=== PATIENT | male | born 1970 | race Caucasian/White ===

== ENCOUNTER → 2017-01-22 | Day surgery (SDC) | payer OTHER ==
[2017-01-22] VITALS (10 sets, daily range): BP systolic 101–117; BP diastolic 54–75; PULSE 70–95; RESP 7–18; O2SAT 96–98
[~2017-01-22] VITALS: Ht 172.7 cm; Wt 77.2 kg
[~2017-01-22] MED LIST: Atropine 0.4 mg/mL Inj IVPUSH PRN; CLIN40GE TP; CeFAZolin 2 Gm/50 mL D5W IV Premix IV ONE; CeFAZolin Inj 2 gm / 50mL D5W IV ONE; Dexamethasone 4 mg/mL Inj IVPUSH PRN; Dexamethasone 4 mg/mL Inj ONE; EPHEDrine Sulfate 50 mg/mL Inj IVPUSH PRN; ESZO2TAB30 PO; HYDR-3091 PO; HYDR20TA19 PO; HYDROmorphone 1 mg/mL Inj IVPUSH PRN; IVER30CR TP; Labetalol 5 mg/mL 20 mL Inj IV PRN; Lactated Ringer's 1,000 ML IV SCH; Lactated Ringer's 500 ML IV PRN; Lidocaine 2%-Epi 1:100,000 20 mL Inj INFILTRATE ONE; METR45CR TOP; MetoCLOpramide 5 mg/mL 2 mL Inj IVPUSH PRN; NORT25CA PO; Ondansetron 2 mg/mL 2 mL Inj IVPUSH PRN; Phenylephrine 10,000 mCg/mL Inj IVPUSH PRN; Propofol 10,000 mCg/mL 20 mL Inj ONE; Ropivacaine-PF 0.5% 30 mL Inj INFILTRATE ONE; SILD100T PO; TEST75GE3 TD; TRET40CR4 TP; Vancomycin Inj 1,000 MG in IV Premix 1 EACH IV ONE; fentaNYL-PF 50 mCg/mL 2 mL Inj IVPUSH PRN; fentaNYL-PF 50 mCg/mL 20 mL Inj ONE; oxyCODONE-Acetamin 5-325 mg Tablet PO PRN
[2017-01-22] MEDS: Lactated Ringer's 1,000 ML IV SCH ×2 (06:11→07:26)
--- NOTE | 2017-01-22 07:23 | PCM.HPANE ---
Patient Data Date of Service: Jan 22, 2017 Surgeon Admitting Provider: Attending Provider:Prieto Lehman DO Primary Care Physician:Trey Tillman MD Other Provider:Alondra Mallory Anesthesia Reason for Visit Left Knee Internal Derangement Ht/WT & BMI Height (Feet): 5 Height (Inches): 8.00 Weight (Kilograms): 77.200 Body Mass Index 25.00 Allergies Coded Allergies: diphenhydramine (Verified Allergy, Intermediate, 01/22/17) Past Anesthesia History Anesthesia History: Denies:: Abnormal Airway, Anesthesia Reactions, Difficult Intubation, Fam Anesthesia Reaction, Fam Malignant Hypertherm, Malignant Hyperthermia Additional Information: Pt notes Hx of prolonged amnesia. Diabetes History Hx Diabetes?: No MRSA MRSA: No Medications Hypertension Medication: No Home Meds Incl Beta Keily: No Reported Medications Hydrocodone-Acetaminophen 7.5-300 mg 1 Each Tablet1 Each PO Q6H PRN For Pain Ref 0 01/14/17 Sildenafil Citrate (Viagra)100 Mg [id number] Mg PO UD PRN erectile dysfunction Ref 0 01/14/17 Tretinoin/Emollient Base (Tretinoin 0.05% Emollient Crm)60 Gm Cream..g.60 Gm TP PRN skin irritation 01/14/17 Nortriptyline 25 Mg [id number] Mg PO HS 01/14/17 Clindamycin Phosphate (Clindagel)40 Ml Gel..ml.1 Applic TP BID #40 ML Ref 0 01/14/17 Testosterone (Androgel)75 Gm Gel..pmp2 Applic TD QAM 2 pumps 1.62% soln 01/14/17 Discontinued Reported Medications Ivermectin (Soolantra)1 % Cream..g.30 Gm TP 01/14/17 Metronidazole (Metronidazole Cream)45 Gm Cream..g.1 Applic TOP BID #45 GM Ref 0 01/14/17 Hydrocodone Bitartrate (Hysingla ER)20 Mg Tab.er.24h20 Mg PO DAILY 01/14/17 Eszopiclone 2 Mg Tablet2 Mg PO HS 01/14/17 History History of ENT Problems?: No HEENT History: Denies:: Abnormal Airway Cataracts Difficult Intubation Dysphagia Glaucoma Hearing Problem Sinus Problem TMJ (grinds teeth a little, no nightguard) Denture Type: None Teeth Condition: Within Normal Limits Hx of Heart Problems?: No Cardiovascular History: Denies:: AICD Abdominal Aortic Aneurism Atrial Fibrillation Congestive Heart Failure Coronary Artery Disease Edema Heart Murmur Hypertension Irregular Heartbeat Pacemaker Peripheral Vascular Rheumatic Fever Hx of Respiratory Problem?: Yes Respiratory History: Positive for:: Use of C-PAP Machine Denies:: Asthma COPD Emphysema Pneumonia Tuberculosis Use of Inhalers / NEBS (past use of, not current ) Hx Neurologic Problems?: No Neurological History: Denies:: CVA Headaches Multiple Sclerosis Parkinson's Disease Seizures TIA Hx of GI Problems?: Yes Gastrointestinal History: Positive for:: Gastroesphageal Reflux Denies:: Cirrhosis Diverticulitis Gall Bladder Disease Gastrointestinal Bleeding Heartburn Hepatitis Hiatal Hernia Liver Disease Rectal Bleeding Hx of Problems?: No Genitourinary History: Denies:: Kidney Stones Urinary Tract Infection Male Hx: Denies:: Prostate Problems Skin History: Denies:: History Skin Disorders? Pressure Ulcers Hx Musculoskeletal Problems?: Yes Musculoskeletal History: Positive for:: Joint Replacement (total knee + distal femur left) Musculoskeletal Trauma (left distal femur replacement - giant cell tumor, left knee current problem) Osteoarthritis Denies:: Fibromyalgia Systemic Lupus Hx of Psycho/Social Problems?: No Psycho Social History: Denies:: Anxiety Hx Depression Hx Surgeries?: Yes (left femoral replacement, left total knee) Hx Any Other Health Problems?: Yes Other History: Positive for:: Cancer (giant cell tumor left femur) Denies:: Thyroid Disease History Blood Transfusions: Positive for:: Accept Blood Products? Denies:: Blood Transfusions Hx Diabetes: No Hx Alcohol Use: NoHx Substance Use: No Smoking Status: Never Smoker Have You Smoked inLast 12 mo: No Stop/Bang P-Blood Pressure: treated: No B- Body Mass Index > 35 kg/m2: No A- Age over 50: No N- Neck Large Circumference: No G- Gender Male: Yes [id number] Risk Assessment: High Risk, =/>3 Yes Risk Assessment Category Category 1A: Patient has history of documented sleep apnea, and HAS NOT received any narcotic, sedative or anesthesia administration during this stay. Category 1B: Patient has history of documented sleep apnea, and HAS received any narcotic , sedative or anesthesia administration during this stay Category 2: Patient has SUSPECTED Obstructive Sleep Apnea, and HAS received any narcotic , sedative or anesthesia administration during this stay. Category 3: Patient has SUSPECTED Obstructive Sleep Apnea and HAS NOT received narcotic, sedative or anesthesia administration during this stay. Category 4: Outpatient in Procedural Areas with known sleep apnea or who screen positive for High Risk via the STOP/BANG questionnaire. Exam Exam Vital Signs Vital Signs Date Time Temp Pulse Resp B/P Pulse Ox O2 Delivery O2 Flow Rate FiO2 01/22/17 06:40 CPAP/BIPAP 01/22/17 06:40 36.7 70 18 117/75 97 Room Air General Appearance: Alert, Oriented X3, Cooperative, No Acute Distress HEENT/AIRWAY: MP 2 (Narrow palate, small mouth) Lungs: Clear to Auscultation, Normal Air Movement Heart: Exam Unremarkable, Regular Rate/Rhythm, No Murmurs/Rubs/Gallops Meds/Labs/Diagnostics Admission Meds Current Medications Lactated Ringer's (Lr) 1,000 ml @ 120 mls/hr Q8H20M IV Last administered on t 06:11; Start 01/22/17 at 05:00; Stop 01/22/17 at 13:19 Plan Impression Patient chart reviewed, patient interviewed and anesthestic plan with risks, benefits, and alternatives discussed, and informed consent obtained. NPO per Anesth. Guidelines: Yes ASA Physical Status: ASA2 Mod Systemic Disease Anesthetic Plan: GA Bene/Risks/Altern/Consents: Yes HP Complete Prior to Induction: Yes Other Patient recounts prolonged amnesia following GA. Offered SAB, Pt defers to routine approach to current case, which I've described as GA. I'll choose against my typical BZD preop and opt for a TIVA in effort to minimize amnestic effects, or at least provide a contrast to likely prior anesthetic modalities. Hong Vergara DO Jan 22, 2017 07:23
--- NOTE | 2017-01-22 09:33 | OP ---
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 PROCEDURE: Left knee video arthroscopy with synovectomy. SURGEON: Prieto Lehman D.O. ANESTHESIA: General. INDICATIONS: The patient is a 46-year-old male who had a giant cell tumor resected out of his distal femur and had a tumor prosthesis placed in his knee, had persistent pain in the patellofemoral region and wished to proceed with a knee arthroscopy. We discussed the risks, benefits, and possible complications of surgery including, but not limited to injury to nerves and vessels, infection, bleeding, incomplete relief symptoms, stiffness, need for additional procedures. The patient had good understanding. All questions were answered and he wished to proceed. PROCEDURE IN DETAIL: The patient was brought to the operating room. He was given a preoperative antibiotic and general anesthetic. The left lower extremity was sterilely prepped and draped. An incision was made over the anterolateral knee at the level of joint line and blunt trocar was introduced into the knee. Inspection was undertaken. He was found to have quite a bit of dense scar tissue and synovitis in the patellofemoral region and in the notch area. A medial portal was established under needle localization and the synovitis and scar tissue were resected from the notch and around the patellofemoral region as well as superiorly at the patella. He was noted to have quite a bit of patella chondromalacia as he has an resurfaced patella articulating with the metal and this is likely a contributor to his pain. His chondromalacia was C2 and C3 on the patella. The scope was then removed and the portals were closed with interrupted nylon suture. An examination under anesthesia was performed. The knee was stable to varus and valgus stress test. Did not have excessive instability in flexion or extension and had excellent range of motion. The wounds were closed with interrupted nylon suture. Naropin was added as an adjunct local anesthetic. Sterile dressings were applied. The patient tolerated the procedure well. Blood loss was minimal. POSTOPERATIVE PROTOCOL: Have the patient weightbear to tolerance. Use crutches as needed. Ice and elevate and followup in the clinic in two weeks or sooner if needed. They discussed with his that if he continues to have problems he might consider a patellar resurfacing arthroplasty to complement his tumor prosthesis total knee replacement.
--- NOTE | 2017-01-22 10:30 | PCM.ANEP1 ---
Post Anesthesia PACU Phase 1 Assessment Date of Service: Jan 22, 2017 Vital Signs Vital Signs Date Time Temp Pulse Resp B/P Pulse Ox O2 Delivery O2 Flow Rate FiO2 01/22/17 09:43 75 18 111/74 01/22/17 09:00 74 18 117/65 97 Room Air 01/22/17 08:55 87 12 114/68 96 Room Air 01/22/17 08:50 36.8 91 14 109/68 96 Room Air 01/22/17 08:45 95 12 107/67 98 Room Air 01/22/17 08:40 87 9 101/72 96 Simple Mask 8 01/22/17 08:35 88 7 108/54 96 Simple Mask 8 01/22/17 08:30 76 8 103/57 96 Simple Mask 8 01/22/17 08:28 36.9 86 7 103/57 96 Simple Mask 8 01/22/17 06:40 CPAP/BIPAP 01/22/17 06:40 36.7 70 18 117/75 97 Room Air Anesthetic Administered: GA Level of Alertness: Awake, talking TAVERAS's with Equal Strength: Yes Pain: No Nausea or Vomiting: No CV Function & Hydration Stable: Yes Airway Device: LMA Lungs: Clear to Auscultation, Normal Air Movement PACU Phase 2 Assessment Complications: No Patient Instructions Provided: N/A Hong Vergara DO Jan 22, 2017 10:30
== END | disposition home or self-care (01) ==
LOC: SAS 06:04
PROVIDERS: ATTEND Orthopaedic Surgery
DX: M65.862 Other synovitis and tenosynovitis, left lower leg (principal); M22.42 Chondromalacia patellae, left knee; M22.2X2 Patellofemoral disorders, left knee; D48.0 Neoplasm of uncertain behavior of bone and articular cartilage; M23.92 Unspecified internal derangement of left knee; K21.9 Gastro-esophageal reflux disease without esophagitis; M54.16 Radiculopathy, lumbar region; G89.29 Other chronic pain; J45.909 Unspecified asthma, uncomplicated; G47.33 Obstructive sleep apnea (adult) (pediatric); M19.90 Unspecified osteoarthritis, unspecified site; Z87.891 Personal history of nicotine dependence; Z96.652 Presence of left artificial knee joint
CPT/HCPCS: 29875; J0690; J1100; J2704; J2795; J3010; J3370; J7120